=== PATIENT | female | born 1990 | race Caucasian/White ===

== ENCOUNTER → 2016-05-23 | Outpatient (REF) | payer OTHER, MEDICAID ==
[~2016-05-23] MED LIST: ACET50TA OR; ANUS2.5C2 TOP; DOCU10ELUD OR; MOM30SS OR; MOTR200T44 PO; TYLE167L PO; VITAPRTA PO
== END ==
LOC: M LAB REF 16:24
PROVIDERS: ATTEND Physician Assistant Medical
DX: N39.0 Urinary tract infection, site not specified (principal)

== ENCOUNTER → 2016-09-01 | Outpatient (REF) | payer OTHER, MEDICAID | LOC: M SFHCLERA 15:41 | PROVIDERS: ATTEND Nurse Practitioner Family | DX: R35.0 Frequency of micturition (principal) ==

== ENCOUNTER → 2016-12-12 | Outpatient (REF) | payer OTHER, MEDICAID | LOC: M SFHCLERA 10:55 | PROVIDERS: ATTEND Nurse Practitioner Family | DX: R30.0 Dysuria (principal) ==

== ENCOUNTER → 2017-01-20 | Outpatient (CLI) | payer BC, OTHER, MEDICAID ==
--- NOTE | 2017-01-20 13:00 | REP ---
Clinical: Anatomical evaluation. Comparison: None . Findings: Examination demonstrates a single live intrauterine in cephalic presentation. motion is identified by technologist. Placenta is noted anteriorly and grade one without evidence for placenta previa or abruption. Amniotic fluid volume is normal. Cervix measures 2.9 cm in length and appears closed. No evidence for nuchal cord. Gestational age by LMP 21 weeks 6 days with RAISSA 05/27/2017 . Gestational age by current measurements 21 weeks 0 days with RAISSA 06/02/2017 . BPD 4.9 cm 20 weeks 5 days HC 19.0 cm 21 weeks 2 days AC 16.6 cm 21 weeks 4 days FL 3.6 cm 21 weeks 3 days HL 3.3 cm 21 weeks 2 days HC/AC ratio 1.15 Estimated weight 425 grams ( 32 percentile). Anatomical assessment demonstrates normal structures including cranium, choroid plexus, cavum, cerebellum/posterior fossa, facial features, lungs, four-chamber heart/ventricular outflow tracts, diaphragm, stomach, cord insertion/three-vessel cord, kidneys/bladder, spine, and extremities. Impression: Single live intrauterine in cephalic presentation demonstrating appropriate interval growth. Anatomical assessment is complete and normal. No gross abnormalities are identified. Signed by Al Overton MD 01/20/2017 12:51 P
== END ==
LOC: M RAD 11:53
PROVIDERS: ATTEND Specialist
DX: Z34.80 Encounter for supervision of other normal pregnancy, unspecified trimester (principal)

== ENCOUNTER → 2017-03-16 | Outpatient (CLI) | payer BC, OTHER, MEDICAID ==
[2017-03-16 14:17] LABS: HEMATOCRIT 33.8 % (36.0-47.0); HEMOGLOBIN 11.2 g/dl (12.0-16.0); MEAN CORPUSCULAR HEMOGLOBIN 29.5 pg (27.0-33.0); MEAN CORPUSCULAR HGB CONC 33.1 g/dl (32.0-36.5); MEAN CORPUSCULAR VOLUME 88.9 fl (80.0-96.0); PLATELET COUNT, AUTOMATED 219 10^3/uL (150-450); RED CELL DISTRIBUTION WIDTH 13.2 % (11.5-14.5); WHITE BLOOD COUNT 12.4 10^3/uL (4.0-10.0)
[2017-03-16 14:37] LABS: GLUCOSE CHALLENGE TEST 1 HOUR 98 MG/DL (LESS THAN 140)
[2017-03-17 09:00] LABS: TYPE AND SCREEN 1 1
== END ==
LOC: M SMT 09:24
DX: Z34.82 Encounter for supervision of other normal pregnancy, second trimester (principal)
CPT/HCPCS: 82950

== ENCOUNTER → 2017-05-12 | Outpatient (REF) | payer OTHER, MEDICAID | LOC: M LAB REF 12:58 | DX: Z36.85 Encounter for antenatal screening for Streptococcus B (principal); Z3A.00 Weeks of gestation of pregnancy not specified | CPT/HCPCS: 87081 ==

== ENCOUNTER → 2017-05-13 | Outpatient (CLI) | payer BC, OTHER, MEDICAID | LOC: M RAD 16:11 | DX: Z34.83 Encounter for supervision of other normal pregnancy, third trimester (principal) | CPT/HCPCS: 76816 ==

== ENCOUNTER → 2018-02-10 | Outpatient (REF) | payer OTHER | LOC: M LAB REF 10:51 | DX: N30.00 Acute cystitis without hematuria (principal) | CPT/HCPCS: 87086 ==

== ENCOUNTER 2019-03-15 03:42 | Emergency (ER) | payer MEDICAID, OTHER ==
[~2019-03-15] VITALS: Ht 154.9 cm; Wt 73.2 kg
[~2019-03-15 03:42] MED LIST changes: -ACET50TA OR; +COLA100C5 PO; -DOCU10ELUD OR; +DOCU5LIQ OR; +MAPA500T17 OR
[2019-03-15 04:52] LABS: INFLUENZA A AMPLIFICATION NEGATIVE (NEGATIVE); INFLUENZA B AMPLIFICATION NEGATIVE (NEGATIVE)
[2019-03-15] MEDS ORDERED: FLON1SPR NARES (05:13)
[2019-03-15 05:49] VITALS: BP 134/69
== END 2019-03-15 05:51 | disposition home or self-care (01) ==
LOC: M ED 03:42
DX: J06.9 Acute upper respiratory infection, unspecified (principal)

== ENCOUNTER → 2019-05-30 | Outpatient (REF) | payer MEDICAID, OTHER ==
[~2019-05-30] MED LIST changes: +FLON1SPR NARES
== END ==
LOC: M PLALAB 11:23
PROVIDERS: ATTEND Advanced Practice Midwife
DX: O20.0 Threatened abortion (principal)

== ENCOUNTER → 2019-06-01 | Outpatient (REF) | payer MEDICAID, OTHER | LOC: M PLALAB 15:33 | PROVIDERS: ATTEND Advanced Practice Midwife | DX: O20.0 Threatened abortion (principal) ==

== ENCOUNTER → 2019-06-03 | Outpatient (REF) | payer MEDICAID, OTHER | LOC: M PLALAB 11:56 | PROVIDERS: ATTEND Advanced Practice Midwife | DX: O20.0 Threatened abortion (principal); Z3A.00 Weeks of gestation of pregnancy not specified ==

== ENCOUNTER → 2019-06-06 | Outpatient (CLI) | payer MEDICAID ==
--- NOTE | 2019-06-06 15:15 | REP ---
FIRST TRIMESTER OBSTETRIC SONOGRAPHY: HISTORY: Supervision of . Inappropriate change in the beta hCG level in early . FINDINGS: Transabdominal scanning and transvaginal scanning are performed. Uterine dimensions are normal measured at 9.7 x 4.5 x 5.2 cm. A triple line morphology is seen in the normal endometrium, 9 mm in thickness. No intrauterine gestational sac is seen. No free fluid is noted in the cul-de-sac. No extrauterine mass or cyst is observed. Right ovary measures 3.7 x 2.6 x 2.9 cm. Left ovarian dimensions are 3.2 x 2.4 x 3.2 cm. IMPRESSION: Normal size empty uterus. No evidence of intrauterine or morphologic evidence of ectopic . Clinical followup is advised.
== END ==
LOC: M WHC 11:17
PROVIDERS: ATTEND Advanced Practice Midwife
DX: O02.81 Inappropriate change in quantitative human chorionic gonadotropin (hCG) in early pregnancy (principal)

== ENCOUNTER → 2019-06-06 | Outpatient (REF) | payer MEDICAID, OTHER | LOC: M PLALAB 11:10 | PROVIDERS: ATTEND Advanced Practice Midwife | DX: O02.81 Inappropriate change in quantitative human chorionic gonadotropin (hCG) in early pregnancy (principal) ==

== ENCOUNTER → 2019-06-07 | Outpatient (REF) | payer MEDICAID | LOC: M SFHCWAGY 17:10 | PROVIDERS: ATTEND Specialist | DX: O20.0 Threatened abortion (principal); Z3A.00 Weeks of gestation of pregnancy not specified ==

== ENCOUNTER → 2019-06-08 | Outpatient (REF) | payer MEDICAID | LOC: M PLALAB 09:59 | PROVIDERS: ATTEND Specialist | DX: O20.0 Threatened abortion (principal); Z3A.00 Weeks of gestation of pregnancy not specified ==

== ENCOUNTER 2019-08-06 15:58 | Emergency (ER) | payer MEDICAID ==
[~2019-08-06] VITALS: Ht 154.9 cm; Wt 81.8 kg
[2019-08-06 17:42] VITALS: BP 133/71
--- NOTE | 2019-08-07 08:39 | REP ---
RIGHT ANKLE, FOUR VIEWS: There is no evidence of an acute fracture, dislocation, or intrinsic bone disease. There is mild lateral soft tissue swelling. IMPRESSION: No fracture or dislocation. Electronically Signed by Bryan Conner MD 08/07/2019 10:12 A
--- NOTE | 2019-08-07 08:42 | REP ---
RIGHT LOWER LEG, AP AND LATERAL: There is no evidence of an acute fracture, dislocation, or intrinsic bone disease. IMPRESSION: No fracture or dislocation. Electronically Signed by Bryan Conner MD 08/07/2019 10:12 A
--- NOTE | 2019-08-07 08:47 | REP ---
RIGHT FOOT, FOUR VIEWS: There is no evidence of an acute fracture, dislocation, or intrinsic bone disease. IMPRESSION: No fracture or dislocation. Electronically Signed by Bryan Conner MD 08/07/2019 10:12 A
== END 2019-08-06 17:56 | disposition home or self-care (01) ==
LOC: M ED 15:58
DX: S93.401A Sprain of unspecified ligament of right ankle, initial encounter (principal); W10.9XXA Fall (on) (from) unspecified stairs and steps, initial encounter; Y92.009 Unspecified place in unspecified non-institutional (private) residence as the place of occurrence of the external cause

== ENCOUNTER → 2019-08-12 | Outpatient (REF) | payer MEDICAID ==
[2019-08-12 15:27] LABS: HCG, SERUM QUALITATIVE NEGATIVE (NEGATIVE)
== END ==
LOC: M PLALAB 13:12
PROVIDERS: ATTEND Advanced Practice Midwife
DX: N91.2 Amenorrhea, unspecified (principal)

== ENCOUNTER 2019-10-05 08:45 | Outpatient (RCR) | payer MEDICAID | END 2019-10-07 | disposition home or self-care (01) | LOC: M PT 08:45 | PROVIDERS: ATTEND Physician Assistant | DX: S93.411D Sprain of calcaneofibular ligament of right ankle, subsequent encounter (principal); W18.30XD Fall on same level, unspecified, subsequent encounter; Y92.9 Unspecified place or not applicable ==

== ENCOUNTER → 2020-02-09 | Outpatient (REF) | payer MEDICAID | LOC: M SFHCWAGY 16:52 | PROVIDERS: ATTEND Specialist | DX: N39.0 Urinary tract infection, site not specified (principal) ==

== ENCOUNTER → 2020-02-10 | Outpatient (REF) | payer MEDICAID | LOC: M PLALAB 09:13 | PROVIDERS: ATTEND Specialist | DX: N92.6 Irregular menstruation, unspecified (principal) ==

== ENCOUNTER → 2020-02-13 | Outpatient (REF) | payer MEDICAID | LOC: M PLALAB 09:50 | PROVIDERS: ATTEND Specialist | DX: N92.6 Irregular menstruation, unspecified (principal) ==

== ENCOUNTER 2020-03-18 18:48 | Emergency (ER) | payer MEDICAID ==
[~2020-03-18] VITALS: Ht 154.9 cm; Wt 79.5 kg
[2020-03-18 18:49] VITALS: BP 117/81
[2020-03-18] MEDS ORDERED: BOOSTRIX/ADACEL VACCINE (DIPHTH/PERTUSS/ACELL/TETANUS) 0.5ML SYR IM ONE (19:00)
[2020-03-18] MEDS ORDERED: LIDOCAINE 1% MDV 20ML VIAL SC ONE (19:15)
[2020-03-18] MEDS ORDERED: ONDANSETRON 4 MG ORAL DISINTEGRATING TAB PO ONE (19:15)
--- NOTE | 2020-03-18 19:38 | REP ---
INDICATION: lac to base of thumb r/o bony involvement COMPARISON: None. TECHNIQUE: AP, lateral views of the left hand. FINDINGS: No subcutaneous emphysema or foreign body identified. The osseous structures and joint spaces appear intact and relatively normal. There is a very small 3 mm corticated bone density identified on the AP radiograph in the 1st carpometacarpal joint which is likely a small ossicle. IMPRESSION: No acute fracture. No obvious bony involvement with regards to laceration/trauma. <Electronically signed by Al Overton > 03/18/201933
[2020-03-18] MEDS ORDERED: KEFL500C17 PO (19:48)
== END 2020-03-18 20:15 | disposition home or self-care (01) ==
LOC: M ED 18:48
DX: S61.012A Laceration without foreign body of left thumb without damage to nail, initial encounter (principal); W26.0XXA Contact with knife, initial encounter; Y92.019 Unspecified place in single-family (private) house as the place of occurrence of the external cause; Y93.89 Activity, other specified; Y99.9 Unspecified external cause status
CPT/HCPCS: 12002; 73120; 99282; Q0162

== ENCOUNTER → 2020-05-21 | Outpatient (REF) | payer MEDICAID ==
[~2020-05-21] MED LIST changes: +KEFL500C17 PO
[2020-05-21 17:36] LABS: HEMATOCRIT 35.1 % (36.0-47.0); HEMOGLOBIN 11.9 g/dl (12.0-15.5); MEAN CORPUSCULAR HEMOGLOBIN 31.3 pg (27.0-33.0); MEAN CORPUSCULAR HGB CONC 33.9 g/dl (32.0-36.5); MEAN CORPUSCULAR VOLUME 92.4 fl (80.0-96.0); PLATELET COUNT, AUTOMATED 231 10^3/uL (150-450); WHITE BLOOD COUNT 9.3 10^3/uL (4.0-10.0)
[2020-05-21 19:00] LABS: HEPATITIS C VIRUS ABY INDEX < 0.0 INDEX (<0.8); HIV 1&2 SCREEN CENTAUR NEGATIVE (NEGATIVE)
== END ==
LOC: M PLALAB 14:32
PROVIDERS: ATTEND Specialist
DX: Z34.81 Encounter for supervision of other normal pregnancy, first trimester (principal)

== ENCOUNTER → 2020-05-21 | Outpatient (CLI) | payer MEDICAID ==
--- NOTE | 2020-05-21 21:57 | REP ---
INDICATION: ANATOMY COMPARISON: None. TECHNIQUE: Transabdominal obstetrical ultrasound with color Doppler evaluation. FINDINGS: Examination demonstrates a single live intrauterine in breech presentation. motion is identified by technologist. Placenta is noted posterior and grade 0 without evidence for placenta previa or abruption. Amniotic fluid volume is normal. Cervix measures 3.4 cm in length and appears closed.. Gestational age by LMP 19 weeks 3 days with RAISSA 10/12/2020. Gestational age by current measurements 20 weeks 0 days with RAISSA 10/08/2020. FHR equals 163 beats per minute. BPD: 4.5 cm at 19 weeks 4 days HC: 17.0 cm at 19 weeks 4 days AC: 15.2 cm at 20 weeks 3 days FL: 3.2 cm at 19 weeks 6 days HL: 3.1 cm at 20 weeks 3 days HC/AC: 1.12 Estimated weight 331 grams (82ndpercentile). Anatomical assessment demonstrates normal structures including cranium, choroid plexus, cavum, cerebellum/posterior fossa, facial features, lungs, four-chamber heart/ventricular outflow tracts, diaphragm, stomach, cord insertion/three-vessel cord, kidneys/bladder, and extremities. IMPRESSION: Single live intrauterine in breech presentation. Appropriate estimated weight. Limited evaluation of the spine. Remainder of the anatomical assessment is complete and normal. <Electronically signed by Al Overton > 05/21/20 [id number]
== END ==
LOC: M WHC 13:33
PROVIDERS: ATTEND Specialist
DX: Z34.82 Encounter for supervision of other normal pregnancy, second trimester (principal)

== ENCOUNTER → 2020-07-02 | Outpatient (CLI) | payer MEDICAID ==
--- NOTE | 2020-07-04 08:11 | REP ---
INDICATION: F/U ANATOMY. COMPARISON: Comparison obstetric sonography 21 May 2020.. TECHNIQUE: Transabdominal obstetric sonography. FINDINGS: Scanning through the gravid uterus demonstrates a viable single intrauterine gestation in cephalic lie. motion is observed and heart rate is recorded at 144 beats per minute. A posterior placenta is seen, grade 1, without evidence of placenta previa. Closed cervical length is measured at 3.9 cm transabdominally. No extrauterine abnormality is observed. Amniotic fluid is subjectively normal. Four-chamber heart and outflow tract views are less than optimally achieved today but were seen previously. spine is observed today and is felt to be unremarkable. In conjunction with the prior study, anatomic survey is felt to be complete.. Biometry chart: BPD 6.4 cm, 25 weeks 6 days Head circumference 23.7 cm, 25 weeks 5 days Abdominal circumference 21.9 cm, 26 weeks 2 days Femur length 5.0 cm, 26 weeks 5 days Humeral length 4.5 cm, 26 weeks 6 days HC AC ratio normal 1.08 Cephalic index normal 0.75 Estimated weight 928 g, 2 lb 0 oz, 79th percentile for 25 weeks 3 days IMPRESSION: Viable single intrauterine gestation at 26 weeks 2 days by today's composite sonographic criteria. RAISSA by today's sonography 06 October 2020. No complication identified. Expected gestational age estimate based on prior sonography is 25 weeks 3 days. RAISSA by prior sonography 12 October 2020. <Electronically signed by Parminder Guillory > 07/04/20 [id number]
== END ==
LOC: M WHC 09:32
PROVIDERS: ATTEND Specialist
DX: Z34.82 Encounter for supervision of other normal pregnancy, second trimester (principal); Z3A.26 26 weeks gestation of pregnancy

== ENCOUNTER → 2020-07-20 | Outpatient (REF) | payer MEDICAID ==
[2020-07-20 17:23] LABS: HEMATOCRIT 34.2 % (36.0-47.0); HEMOGLOBIN 11.2 g/dl (12.0-15.5); MEAN CORPUSCULAR HEMOGLOBIN 30.4 pg (27.0-33.0); MEAN CORPUSCULAR HGB CONC 32.7 g/dl (32.0-36.5); MEAN CORPUSCULAR VOLUME 92.9 fl (80.0-96.0); PLATELET COUNT, AUTOMATED 228 10^3/uL (150-450); RED BLOOD COUNT 3.68 10^6/uL (4.00-5.40); WHITE BLOOD COUNT 9.5 10^3/uL (4.0-10.0)
== END ==
LOC: M PLALAB 13:06
PROVIDERS: ATTEND Specialist
DX: Z34.82 Encounter for supervision of other normal pregnancy, second trimester (principal); Z3A.00 Weeks of gestation of pregnancy not specified
CPT/HCPCS: 36415; 82950; 85027; 86850; 86900; 86901; J2790

== ENCOUNTER → 2020-08-10 | Outpatient (CLI) | payer MEDICAID ==
--- NOTE | 2020-08-10 14:57 | REP ---
INDICATION: UTERINE SIZE DATE DISCREPANCY,GROWTH COMPARISON: 07/02/2020 TECHNIQUE: Transabdominal obstetrical ultrasound with color Doppler evaluation. FINDINGS: Examination demonstrates a single live intrauterine in cephalic presentation. motion is identified by technologist. Placenta is noted posterior and grade 1 without evidence for placenta previa or abruption. Amniotic fluid volume is normal. Cervix measures 3.3 cm in length and appears closed.. Selected gestational age: 31 weeks 0 days with RAISSA 10/12/2020. Gestational age by current measurements 32 weeks 0 days with RAISSA 10/05/2020. FHR equals 136 beats per minute. BPD: 7.9 cm at 31 weeks 4 days HC: 28.9 cm at 31 weeks 5 days AC: 28.5 cm at 32 weeks 4 days FL: 6.2 cm at 32 weeks 2 days HL: 5.5 cm at 32 weeks 0 days HC/AC: 1.01 Estimated weight 1943 grams (80thpercentile). LAUREN: 16.0 cm (8.8-23.8) Umbilical artery 1 SD ratio: 3.33 (1.90-3.98) Umbilical artery 2 SD ratio: 2.65 (1.90-3.98) IMPRESSION: Single live intrauterine in cephalic presentation demonstrating appropriate estimated weight/growth. <Electronically signed by Al Overton > 08/10/20 [id number]
== END ==
LOC: M WHC 13:01
PROVIDERS: ATTEND Obstetrics & Gynecology
DX: O26.843 Uterine size-date discrepancy, third trimester (principal)

== ENCOUNTER → 2020-09-24 | Outpatient (REF) | payer MEDICAID | LOC: M SFHCWAGY 16:52 | PROVIDERS: ATTEND Specialist | DX: Z34.83 Encounter for supervision of other normal pregnancy, third trimester (principal) ==

== ENCOUNTER → 2020-10-02 | Outpatient (CLI) | payer MEDICAID ==
--- NOTE | 2020-10-02 12:50 | REP ---
INDICATION: GROWTH. COMPARISON: Comparison study is from August 10, 2020.. TECHNIQUE: Transabdominal obstetric sonography. FINDINGS: Scanning through the gravid uterus demonstrates a viable single intrauterine gestation in cephalic lie. motion is observed and heart rate is recorded at 160 beats per minute. A posterior placenta is seen, grade 2, without evidence of placenta previa. Closed cervical length was not measured due to head position.. No extrauterine abnormality is observed. Amniotic fluid is subjectively normal, LAUREN normal 16.5 cm.. Biometry chart: BPD 9.5 cm, 38 weeks 5 days Head circumference 33.5 cm, 38 weeks 3 days Abdominal circumference 37.0 cm, 41 weeks 0 days Femur length 7.7 cm, 39 weeks 1 day Humeral length 6.8 cm, 39 weeks 2 days HC AC ratio normal 0.91 Cephalic index normal 0.81 Estimated weight 3944 g, 8 lb 11 oz, greater than 97th percentile for 38 weeks 4 days IMPRESSION: Viable single intrauterine gestation at 39 weeks 2 days by today's composite sonographic criteria. RAISSA by today's sonography October 07, 2020. No complication identified. Expected gestational age estimate based on known RAISSA of October 12, 2020 is 38 weeks 4 days. Estimated weight greater than 90th percentile. <Electronically signed by Parminder Guillory > 10/02/20 [id number]
== END ==
LOC: M WHC 10:59
PROVIDERS: ATTEND Specialist
DX: Z34.83 Encounter for supervision of other normal pregnancy, third trimester (principal)

== ENCOUNTER 2020-10-12 08:54 | Inpatient (IN) | payer MEDICAID ==
[~2020-10-12] VITALS: Ht 154.9 cm; Wt 81.8 kg
[2020-10-12] VITALS (9 sets, daily range): BP systolic 121–166; BP diastolic 60–100
[2020-10-12] MEDS ORDERED: PENICILLIN G POTASSIUM IV 5 MU in D5W MINI-BAG PLUS 100 ML IV STA (09:07)
[2020-10-12] MEDS ORDERED: LACTATED RINGER'S 1000 ML IV STA (09:07)
[2020-10-12] MEDS ORDERED: LR 1,000 ML IV SCH (09:10)
[2020-10-12] MEDS ORDERED: LIDOCAINE 1% MDV 20ML VIAL INFIL PRN (09:10)
[2020-10-12] MEDS ORDERED: OXYTOCIN DRIP 30 UNITS in IV 1 EA IV PRN (09:10)
[2020-10-12 09:38] LABS: HEMATOCRIT 36.6 % (36.0-47.0); MEAN CORPUSCULAR HEMOGLOBIN 27.6 pg (27.0-33.0); MEAN CORPUSCULAR HGB CONC 32.8 g/dl (32.0-36.5); MEAN CORPUSCULAR VOLUME 84.1 fl (80.0-96.0); PLATELET COUNT, AUTOMATED 232 10^3/uL (150-450); RED BLOOD COUNT 4.35 10^6/uL (4.00-5.40); WHITE BLOOD COUNT 10.1 10^3/uL (4.0-10.0)
[2020-10-12] MEDS ORDERED: MOM 30ML SUSPENSION UDC PO PRN (10:45)
[2020-10-12] MEDS ORDERED: IBUPROFEN 800 MG TAB PO PRN (10:45)
[2020-10-12] MEDS ORDERED: RHOGAM 300 MCG (1500 IU) INJ (J2790) IM SCH (10:45)
[2020-10-12] MEDS ORDERED: DOCUSATE SODIUM 100MG CAPSULE PO PRN (10:45)
[2020-10-12] MEDS ORDERED: ACETAMINOPHEN TAB 650MG DOSE (2X325MG) PO PRN (10:45)
[2020-10-12] MEDS ORDERED: MEASLES,MUMPS,RUBELLA VACCINE INJ (MMR-II) (90707) SC SCH (10:45)
[2020-10-12] MEDS ORDERED: ACETAMINOPHEN 500 MG TAB PO PRN (10:45)
[2020-10-12] MEDS ORDERED: METHYLERGONOVINE MALEATE 0.2 MG TAB PO PRN (10:45)
[2020-10-12] MEDS ORDERED: IBUPROFEN 600MG TAB PO PRN (10:45)
[2020-10-12] MEDS ORDERED: DIBUCAINE 1% OINTMENT 30GM TOP PRN (10:45)
[2020-10-12] MEDS ORDERED: OXYTOCIN DRIP 30 UNITS in IV 1 EA IV SCH (10:45)
[2020-10-12 11:14] LABS: CORD GAS ABE V -4.3; CORD GAS HCO3 V 22.5 MEQ/L; CORD GAS O2 SAT V 74.7 %; CORD GAS PCO2 V 47.5 mmHg; CORD GAS PH V 7.293 UNITS; CORD GAS PO2 V 32.9 mmHg; CORD GAS SBC V 20.3 MEQ/L; CORD GAS TCO2 V 23.9 MEQ/L
[2020-10-12] MEDS ORDERED: PENICILLIN G POTASSIUM IV 2.5 MU in IV 1 EA IV SCH (14:00)
[2020-10-13 06:04] VITALS: BP 107/51
[2020-10-13] MEDS ORDERED: PRENATAL VITAMINS CHEWABLE TABLET PO SCH (09:00)
[2020-10-13 17:56] VITALS: BP 114/59
== END 2020-10-13 17:55 | disposition home or self-care (01) | DRG 560 ==
LOC: M LDO 08:54 → M LDI 09:37 → M OBS 14:55
PROVIDERS: ADMIT Advanced Practice Midwife; ATTEND Advanced Practice Midwife
PROC: 10E0XZZ Delivery of Products of Conception, External Approach (ICD-10-PCS; principal; 2020-10-12)
DX: O48.0 Post-term pregnancy (principal); Z3A.40 40 weeks gestation of pregnancy; Z37.0 Single live birth; O99.824 Streptococcus B carrier state complicating childbirth; O62.3 Precipitate labor; O69.1XX0 Labor and delivery complicated by cord around neck, with compression, not applicable or unspecified

== ENCOUNTER → 2021-03-13 | Outpatient (REF) | payer MEDICAID | LOC: M LAB REF 10:59 | PROVIDERS: ATTEND Physician Assistant | DX: R05.9 Cough, unspecified (principal) ==

== ENCOUNTER → 2021-05-20 | Outpatient (CLI) | payer MEDICAID, OTHER | LOC: M PLALAB 11:14 | PROVIDERS: ATTEND Advanced Practice Midwife | DX: O20.0 Threatened abortion (principal) ==

== ENCOUNTER → 2022-05-28 | Outpatient (CLI) | payer MEDICAID | LOC: M PLALAB 10:16 | PROVIDERS: ATTEND Specialist | DX: Z34.81 Encounter for supervision of other normal pregnancy, first trimester (principal); Z3A.00 Weeks of gestation of pregnancy not specified ==

== ENCOUNTER → 2022-05-30 | Outpatient (CLI) | payer MEDICAID | LOC: M PLALAB 10:16 | PROVIDERS: ATTEND Specialist | DX: N92.6 Irregular menstruation, unspecified (principal) ==

== ENCOUNTER → 2023-08-17 | Outpatient (CLI) | payer OTHER | LOC: M WHC 09:31 | PROVIDERS: ATTEND Specialist | DX: Z34.82 Encounter for supervision of other normal pregnancy, second trimester (principal); Z3A.19 19 weeks gestation of pregnancy ==

== ENCOUNTER → 2023-08-31 | Outpatient (CLI) | payer OTHER ==
[2023-08-31 15:40] LABS: HEMATOCRIT 36.3 % (36.0-47.0); HEMOGLOBIN 12.4 g/dl (12.0-15.5); MEAN CORPUSCULAR HEMOGLOBIN 30.9 pg (27.0-33.0); MEAN CORPUSCULAR HGB CONC 34.2 g/dl (32.0-36.5); MEAN CORPUSCULAR VOLUME 90.5 fl (80.0-96.0); PLATELET COUNT, AUTOMATED 249 10^3/uL (150-450); RED BLOOD COUNT 4.01 10^6/uL (4.00-5.40); WHITE BLOOD COUNT 11.3 10^3/uL (4.0-10.0)
[2023-08-31 16:16] LABS: HIV 1&2 SCREEN NEGATIVE (NEGATIVE)
[2023-08-31 16:24] LABS: HEPATITIS C VIRUS ABY INDEX < 0.02 INDEX (<0.8)
[2023-08-31 17:11] LABS: GC DNA AMPLIFICATION NEGATIVE (NEGATIVE)
== END ==
LOC: M PLALAB 13:09
PROVIDERS: ATTEND Specialist
DX: Z34.81 Encounter for supervision of other normal pregnancy, first trimester (principal)

== ENCOUNTER → 2023-10-26 | Outpatient (CLI) | payer OTHER | LOC: M PLALAB 12:36 | PROVIDERS: ATTEND Specialist | DX: Z34.82 Encounter for supervision of other normal pregnancy, second trimester (principal); Z3A.00 Weeks of gestation of pregnancy not specified ==

== ENCOUNTER → 2023-11-17 | Outpatient (CLI) | payer OTHER | LOC: M WHC 09:35 | PROVIDERS: ATTEND Specialist | DX: Z34.83 Encounter for supervision of other normal pregnancy, third trimester (principal); Z3A.31 31 weeks gestation of pregnancy ==

== ENCOUNTER → 2023-12-23 | Outpatient (REF) | payer OTHER, MEDICAID | LOC: M SFHCWAGY 13:01 | PROVIDERS: ATTEND Specialist | DX: Z34.83 Encounter for supervision of other normal pregnancy, third trimester (principal); Z3A.36 36 weeks gestation of pregnancy ==

== ENCOUNTER 2024-01-16 07:45 | Inpatient (IN) | payer OTHER, MEDICAID ==
[~2024-01-16] VITALS: Ht 154.9 cm; Wt 79.8 kg
[2024-01-16] VITALS (7 sets, daily range): BP systolic 111–129; BP diastolic 57–74; TEMP 98.1; O2SAT 95–97
[2024-01-16] MEDS ORDERED: LACTATED RINGER'S 1000 ML IV STA (07:58)
[2024-01-16] MEDS ORDERED: OXYTOCIN DRIP 30 UNITS in IV 1 EA IV PRN (08:00)
[2024-01-16] MEDS ORDERED: TRANEXAMIC ACID INJection 1,000 MG in NS 100 ML IV PRN (08:00)
[2024-01-16] MEDS ORDERED: OXYTOCIN INJ 10UNITS/ML 1ML VIAL IM PRN (08:00)
[2024-01-16] MEDS ORDERED: LIDOCAINE 1% MDV 20ML VIAL INFIL PRN (08:00)
[2024-01-16] MEDS ORDERED: CARBOPROST TROMETHAMINE 250 MCG/ML AMP IM PRN (08:00)
[2024-01-16] MEDS ORDERED: METHYLERGONOVINE MALEATE 0.2MG/ML 1ML VIAL IM PRN (08:00)
[2024-01-16] MEDS: PENICILLIN G POTASSIUM 5 MU IV 5 MU in DEXTROSE 5% (D5W) MINI-BAG PLU 100 ML IV STA (08:11)
[2024-01-16] MEDS: LR 1,000 ML IV SCH (08:11)
[2024-01-16 08:25] LABS: HEMATOCRIT 35.6 % (36.0-47.0); HEMOGLOBIN 11.2 g/dl (12.0-15.5); MEAN CORPUSCULAR HEMOGLOBIN 25.5 pg (27.0-33.0); MEAN CORPUSCULAR HGB CONC 31.5 g/dl (32.0-36.5); MEAN CORPUSCULAR VOLUME 80.9 fl (80.0-96.0); PLATELET COUNT, AUTOMATED 264 10^3/uL (150-450); WHITE BLOOD COUNT 10.4 10^3/uL (4.0-10.0)
[2024-01-16] MEDS ORDERED: HOME MED LIST COMPLETE! XX SCH (09:10)
[2024-01-16] MEDS ORDERED: CALCIUM CARBONATE 500 MG CHEW U/D PO PRN (09:20)
[2024-01-16] MEDS ORDERED: ONDANSETRON 4MG 2ML VIAL IV PRN (09:20)
[2024-01-16] MEDS ORDERED: ACETAMINOPHEN 325 MG TAB PO PRN (09:20)
[2024-01-16] MEDS ORDERED: ANUSOL HC CREAM 30GM TOP PRN (09:20)
[2024-01-16] MEDS ORDERED: RHOGAM 300MCG (1500IU) INJ IM SCH (09:20)
[2024-01-16] MEDS ORDERED: METHYLERGONOVINE MALEATE 0.2 MG TAB PO PRN (09:20)
[2024-01-16] MEDS ORDERED: ACETAMINOPHEN 500 MG TAB PO PRN (09:20)
[2024-01-16] MEDS ORDERED: DIBUCAINE 1% OINTMENT 30GM TOP PRN (09:20)
[2024-01-16] MEDS: OXYTOCIN DRIP 30 UNITS in IV 1 EA IV PRN (09:35)
[2024-01-16 09:45] LABS: HEPATITIS C VIRUS ABY INDEX 0.04 INDEX (<0.8)
[2024-01-16] MEDS ORDERED: PEN G POT 3,000,000 UNIT/50 ML 3,000,000 UNIT in IV 1 EA IV SCH (12:00)
[2024-01-16] MEDS: IBUPROFEN 800 MG TAB PO PRN (13:14)
[2024-01-17 05:55] VITALS: BP 110/54; O2SAT 98
[2024-01-17] MEDS: DOCUSATE SODIUM 100MG CAPSULE PO PRN (07:30)
[2024-01-17] MEDS: PRENATAL VITAMINS CHEWABLE TABLET PO SCH (07:30)
[2024-01-17] MEDS: IBUPROFEN 600MG TAB PO PRN (07:31)
[2024-01-18] MEDS ORDERED: MEASLES,MUMPS,RUBELLA VACCINE INJ (MMR-II) SC.IMMUN ONE (09:00)
== END 2024-01-17 12:52 | disposition home or self-care (01) | DRG 560 ==
LOC: M LDO 07:45 → M LDI 07:52 → M OBS 14:45
PROVIDERS: ADMIT Obstetrics & Gynecology; ATTEND Obstetrics & Gynecology
PROC: 10E0XZZ Delivery of Products of Conception, External Approach (ICD-10-PCS; principal; 2024-01-16)
DX: O48.0 Post-term pregnancy (principal); Z37.0 Single live birth; Z3A.40 40 weeks gestation of pregnancy